=== PATIENT | male | born 1955 | race Caucasian/White ===

== ENCOUNTER 2017-12-13 18:57 | Emergency (ER) | payer OTHER ==
[~2017-12-13] VITALS: Ht 172.7 cm; Wt 90.7 kg
[2017-12-13] MEDS ORDERED: ZOLOFT25 MG (19:14)
[2017-12-13] MEDS ORDERED: HYDROCHLOROTHIA25 MG (19:14)
[2017-12-13] MEDS ORDERED: LISINOPRIL40 MG (19:14)
[2017-12-13] MEDS ORDERED: METFORMIN HCL500 MG (19:15)
[2017-12-13] MEDS ORDERED: SEROQUEL50 MG (19:15)
== END 2017-12-13 21:24 | disposition home or self-care (01) ==
LOC: ER 18:57
DX: G45.8 Other transient cerebral ischemic attacks and related syndromes (principal)